=== PATIENT | male | born 1985 | race Caucasian/White ===

== ENCOUNTER → 2017-01-11 | Outpatient (CLI) | payer OTHER ==
--- NOTE | 2017-01-11 08:32 | RAD ---
EXAM: Right ankle, 3 views. HISTORY: Pain. COMPARISON: 11/29/2010. FINDINGS: Frontal, lateral and mortise views of the right ankle are obtained. There is no fracture, dislocation or subluxation. There is soft tissue swelling. IMPRESSION: No acute osseous finding.
== END | disposition home or self-care (01) ==
LOC: DXRADRC 08:09
PROVIDERS: ATTEND Physician Assistant Medical
DX: M25.571 Pain in right ankle and joints of right foot (principal)
CPT/HCPCS: 73610